=== PATIENT | female | born 1955 | race Two or more races ===

== ENCOUNTER 2021-10-07 04:52 | Inpatient (IN) | payer OTHER ==
[~2021-10-07] VITALS: Ht 162.6 cm; Wt 85.5 kg
[2021-10-07 05:29] LABS: Basophils # (auto) 0.1 10 ^3/uL (0-0.2); Basophils % (auto) 0.9 % (0.0-2.0); Eosinophils # (auto) 0 10 ^3/uL (0-0.8); Lymphocytes # (auto) 1.5 10 ^3/uL (0.4-5.4); Monocytes # (auto) 0.6 10 ^3/uL (0-1.3); Monocytes % (auto) 5.6 % (0.0-12.0); White Blood Cell 11.4 10^3/uL (4.4-10.8)
[2021-10-07 05:32] LABS: Eosinophils % (auto) 0.2 % (0.0-7.0); Hematocrit 33.9 % (36.0-46.0); Hemoglobin 11.1 g/dL (12.2-16.2); Lymphocytes % (auto) 13.2 % (10.0-50.0); Mean Corpuscular Hemoglobin 24.4 pg (28.0-32.0); Mean Corpuscular Hgb Conc. 32.8 g/dL (32.0-36.0); Mean Corpuscular Volume 74.5 fL (80.0-100.0); Neutrophils # (auto) 9.2 10 ^3/uL (1.6-8.6); Neutrophils % (auto) 80.1 % (37.0-80.0); Red Blood Cells 4.55 10^6/uL (4.0-5.20); Red Cell Distribution Width 15.5 % (11.8-14.3)
[2021-10-07] MEDS ORDERED: DONNATAL 5ml ORAL Elix (BELLADONNA ALK-PHENOBARB) PO ONE (07:30)
[2021-10-07] MEDS ORDERED: KETOROLAC TROMETH 30 MG/ML 1ML VIAL IV ONE (07:30)
[2021-10-07] MEDS ORDERED: FAMOTIDINE (10MG/ML) 2ML VL IV ONE ×2 (07:30→14:12)
[2021-10-07] MEDS ORDERED: ONDANSETRON HCL 4 MG/2 ML VIAL IV ONE (07:30)
[2021-10-07] MEDS ORDERED: LIDOCAINE VISCOUS 2% 15ML UD PO ONE (07:30)
[2021-10-07] MEDS ORDERED: ALUM & MAG HYDROX-SIMETH LIQ(MAALOX) 30 ML PO ONE (07:30)
[2021-10-07 08:40] LABS: Albumin 3.2 g/dL (3.4-5.0); Anion Gap 10 (5-15); Blood Urea Nitrogen 9 mg/dL (7-18); Calcium 9.8 mg/dL (8.5-10.1); Carbon Dioxide 22 mmol/L (21-32); Chloride 108 mmol/L (98-107); Glucose 125 mg/dL (74-106); Potassium 4.3 mmol/L (3.5-5.1); Sodium 140 mmol/L (136-145)
[2021-10-07 08:43] LABS: Alanine Aminotransferase 23 U/L (13-56); Alkaline Phosphatase 148 U/L (45-117); Aspartate Aminotransferase 22 U/L (15-37); BUN/Creatinine Ratio 9.1; Bilirubin, Total 0.3 mg/dL (0.2-1.0); GFR African American 72 mL/min; GFR Non-African American 59 mL/min; Total Protein 7.5 g/dL (6.4-8.2)
[2021-10-07] MEDS ORDERED: cefTRIAXone 1GM/50ML D5W 50 ML IV ONE (10:00)
[2021-10-07] MEDS ORDERED: metroNIDAZOLE 500MG/100ML 100 ML IV ONE (10:00)
[2021-10-07] MEDS ORDERED: MORPHINE SULFATE 4 MG/ML SYR/VIAL IV ONE (11:00)
[2021-10-07 11:35] LABS: INR 1.02 (0.9-1.15); Partial Thromboplastin Time 24.4 sec (23.6-33.0)
[2021-10-07] MEDS ORDERED: MORPHINE SULFATE INJECTION 2 MG/ML SYRG IV PRN (12:15)
[2021-10-07] MEDS ORDERED: ONDANSETRON HCL 4 MG/2 ML VIAL IV PRN ×2 (12:15→15:30)
[2021-10-07] MEDS ORDERED: SODIUM CHLORIDE 0.9% 1,000 ML IV ONE (12:15)
[2021-10-07 13:24] LABS: Urine Bacteria NONE SEEN /hpf (None Seen); Urine Blood Negative /uL (Negative); Urine Budding Yeast OCCASIONAL /hpf (None Seen); Urine Mucus FEW (None Seen); Urine WBC 3 /hpf (0 - 5)
[2021-10-07] MEDS ORDERED: ceFAZolin 1GM/50ML 100 ML IV ONE (13:42)
[2021-10-07] MEDS: metroNIDAZOLE 500MG/100ML 100 ML IV SCH ×2 (14:00→22:18)
[2021-10-07] MEDS ORDERED: BUPIVACAINE W/ EPINEPH 0.25% INJ 50ML MDV ONE (14:10)
[2021-10-07] MEDS ORDERED: KETOROLAC TROMETH 30 MG/ML 1ML VIAL ONE (14:12)
[2021-10-07] MEDS ORDERED: GLYCOPYRROLATE 0.2 MG/ML 1ML VIAL ONE (14:17)
[2021-10-07] MEDS ORDERED: MIDAZOLAM HCL 2MG/2ML 2ml VIAL (1mg/ml) ONE (14:17)
[2021-10-07] MEDS ORDERED: ROCURONIUM 10MG/ML 10ML VIAL IV ONE ×2 (14:17→14:22)
[2021-10-07] MEDS ORDERED: DexAMETHasone SOD PHOS 10MG/1ML VIAL INJ ONE (14:17)
[2021-10-07] MEDS ORDERED: PROPOFOL 10 MG/ML 20 ML IV ONE (14:17)
[2021-10-07] MEDS ORDERED: fentaNYL CITRATE 100 MCG/2 ML VL ONE (14:17)
[2021-10-07] MEDS ORDERED: ePHEDrine SULFATE 50 MG/ML AMP ONE (14:17)
[2021-10-07] MEDS ORDERED: HYDROmorphone HCL 2 MG/ML VL ONE (14:17)
[2021-10-07] MEDS ORDERED: LIDOCAINE 2% (LOCAL ANESTH.) PF 5ml SDV ONE (14:17)
[2021-10-07] MEDS ORDERED: ONDANSETRON HCL 4 MG/2 ML VIAL ONE (14:17)
[2021-10-07] MEDS ORDERED: SUGAMMADEX 200mg/2ml Vial (100MG/ML) IV ONE (15:01)
[2021-10-07] MEDS: D5W/SOD CHL 0.45%/KCL 20MEQ 1,000 ML IV SCH (15:15)
[2021-10-07] MEDS ORDERED: HYDROmorphone HCL 2 MG/ML VL IV ONE (15:15)
[2021-10-07] MEDS ORDERED: HYDROmorphone HCL 2 MG/ML VL IV PRN (15:30)
[2021-10-07 17:25] VITALS: BP 123/42
[2021-10-07] MEDS: ceFAZolin 1GM/50ML 50 ML IV SCH ×2 (21:30→22:05)
[2021-10-07 22:18] VITALS: BP 133/76
[2021-10-07 22:46] LABS: Cholesterol 195 mg/dL (< 200); HDL Cholesterol 61 mg/dL (40-59); LDL Cholesterol 122 mg/dL (< 100); Triglycerides 41 mg/dL (< 150)
[2021-10-08] MEDS: D5W/SOD CHL 0.45%/KCL 20MEQ 1,000 ML IV SCH ×2 (02:08→14:44)
[2021-10-08 04:20] VITALS: BP 127/69
[2021-10-08 05:07] LABS: Basophils # (auto) 0 10 ^3/uL (0-0.2); Basophils % (auto) 0.2 % (0.0-2.0); Eosinophils # (auto) 0 10 ^3/uL (0-0.8); Mean Corpuscular Hemoglobin 24.3 pg (28.0-32.0); Monocytes # (auto) 0.9 10 ^3/uL (0-1.3); Red Cell Distribution Width 15.6 % (11.8-14.3)
[2021-10-08 05:08] LABS: Hematocrit 27.6 % (36.0-46.0); Lymphocytes % (auto) 8.8 % (10.0-50.0); Mean Corpuscular Hgb Conc. 32.6 g/dL (32.0-36.0); Mean Corpuscular Volume 74.6 fL (80.0-100.0); Monocytes % (auto) 7.9 % (0.0-12.0); Neutrophils # (auto) 9.6 10 ^3/uL (1.6-8.6); Neutrophils % (auto) 83.1 % (37.0-80.0); White Blood Cell 11.6 10^3/uL (4.4-10.8)
[2021-10-08] MEDS: ceFAZolin 1GM/50ML 50 ML IV SCH ×3 (05:12→21:38)
[2021-10-08 05:29] LABS: Albumin 2.4 g/dL (3.4-5.0); BUN/Creatinine Ratio 11.2; Calcium 9.1 mg/dL (8.5-10.1); Potassium 4.2 mmol/L (3.5-5.1)
[2021-10-08 05:31] LABS: Bilirubin, Total 0.4 mg/dL (0.2-1.0); Total Protein 5.8 g/dL (6.4-8.2)
[2021-10-08] MEDS: metroNIDAZOLE 500MG/100ML 100 ML IV SCH ×3 (05:49→22:44)
[2021-10-08 09:30] VITALS: BP 129/75
[2021-10-08] MEDS: PANTOPRAZOLE 40 MG/10 ML VIAL INJ IV SCH (10:14)
[2021-10-08 13:00] VITALS: BP 120/74
[2021-10-08 17:00] VITALS: BP 145/78
[2021-10-08 22:00] VITALS: BP 137/71
[2021-10-09 05:00] VITALS: BP 146/82
[2021-10-09 05:25] LABS: Eosinophils # (auto) 0.1 10 ^3/uL (0-0.8); Lymphocytes # (auto) 1.7 10 ^3/uL (0.4-5.4); Mean Corpuscular Volume 74.3 fL (80.0-100.0); Monocytes # (auto) 0.7 10 ^3/uL (0-1.3); Nucleated Red Blood Cells % 0.1 %
[2021-10-09 05:28] LABS: Basophils # (auto) 0.1 10 ^3/uL (0-0.2); Basophils % (auto) 1.2 % (0.0-2.0); Eosinophils % (auto) 1.5 % (0.0-7.0); Hematocrit 25.3 % (36.0-46.0); Hemoglobin 8.4 g/dL (12.2-16.2); Mean Corpuscular Hemoglobin 24.7 pg (28.0-32.0); Mean Corpuscular Hgb Conc. 33.3 g/dL (32.0-36.0); Monocytes % (auto) 11.4 % (0.0-12.0); Neutrophils # (auto) 3.5 10 ^3/uL (1.6-8.6); Neutrophils % (auto) 57.9 % (37.0-80.0); Red Blood Cells 3.41 10^6/uL (4.0-5.20); White Blood Cell 6.1 10^3/uL (4.4-10.8)
[2021-10-09] MEDS: ceFAZolin 1GM/50ML 50 ML IV SCH (06:14)
[2021-10-09] MEDS: metroNIDAZOLE 500MG/100ML 100 ML IV SCH (06:51)
[2021-10-09 09:00] VITALS: BP 144/78
[2021-10-09] MEDS: PANTOPRAZOLE 40 MG/10 ML VIAL INJ IV SCH (09:33)
[2021-10-09] MEDS ORDERED: CEPH-509 PO (11:18)
[2021-10-09] MEDS ORDERED: ACET-1079 PO (11:19)
== END 2021-10-09 12:00 | disposition home or self-care (01) | DRG 419 ==
LOC: ER 04:52 → OVERFLOW 12:08 → CENTRAL 16:14
PROVIDERS: ADMIT Registered Nurse; ATTEND Registered Nurse
PROC: 0FT44ZZ Resection of Gallbladder, Percutaneous Endoscopic Approach (ICD-10-PCS; principal; 2021-10-07 14:28)
DX: K80.00 Calculus of gallbladder with acute cholecystitis without obstruction (principal); D50.9 Iron deficiency anemia, unspecified; E66.01 Morbid (severe) obesity due to excess calories; K44.9 Diaphragmatic hernia without obstruction or gangrene; Z20.822 Contact with and (suspected) exposure to COVID-19; Z87.19 Personal history of other diseases of the digestive system; Z68.32 Body mass index [BMI] 32.0-32.9, adult
CPT/HCPCS: 36415; 71045; 76705; 80053; 80061; 81001; 83036; 83690; 83735; 83880; 84484; 85025; 85610; 85730; 86850; 86900; 86901; 93005; 96365; 96375; C9113; G0378; J0690; J0696; J1100; J1885; J2001; J2250; J2405; J2704; J3490

== ENCOUNTER 2023-03-22 17:18 | Inpatient (IN) | payer OTHER ==
[~2023-03-22] VITALS: Ht 160 cm; Wt 80.4 kg
[~2023-03-22 17:18] MED LIST: ACET-1079 PO; CEPH-509 PO
[2023-03-22 17:47] LABS: Basophils # (auto) 0 10 ^3/uL (0-0.2); Basophils % (auto) 0.6 % (0.0-2.0); Eosinophils # (auto) 0.1 10 ^3/uL (0-0.8); Eosinophils % (auto) 0.7 % (0.0-7.0); Hematocrit 42.6 % (36.0-46.0); Hemoglobin 14.1 g/dL (12.2-16.2); Lymphocytes # (auto) 1.4 10 ^3/uL (0.4-5.4); Mean Corpuscular Hgb Conc. 33.1 g/dL (32.0-36.0); Mean Corpuscular Volume 87.6 fL (80.0-100.0); Monocytes # (auto) 0.5 10 ^3/uL (0-1.3); Monocytes % (auto) 6.4 % (0.0-12.0); Neutrophils # (auto) 5.9 10 ^3/uL (1.6-8.6); Neutrophils % (auto) 74.3 % (37.0-80.0); Nucleated Red Blood Cells % 0.1 %; Red Blood Cells 4.86 10^6/uL (4.0-5.20); Red Cell Distribution Width 14.2 % (11.8-14.3); White Blood Cell 7.9 10^3/uL (4.4-10.8)
[2023-03-22 18:13] LABS: Alanine Aminotransferase 78 U/L (7-40); Alkaline Phosphatase 155 U/L (46-116); Calcium 10.3 mg/dL (8.7-10.4); Chloride 110 mmol/L (98-107)
[2023-03-22 18:14] LABS: Albumin 4.3 g/dL (3.2-4.8); Anion Gap 5 (5-15); Aspartate Aminotransferase 62 U/L (13-40); BUN/Creatinine Ratio 15.2 (10.0-20.0); Bilirubin, Total 0.5 mg/dL (0.2-1.0); Blood Urea Nitrogen 14 mg/dL (9-23); Carbon Dioxide 27 mmol/L (20-30); Glucose 108 mg/dL (74-106); Potassium 4.1 mmol/L (3.5-5.1); Sodium 142 mmol/L (136-145); Total Protein 6.5 g/dL (5.7-8.2)
[2023-03-22] MEDS ORDERED: ASPirin 325 MG TAB PO ONE (18:30)
[2023-03-22] MEDS ORDERED: SODIUM CHLORIDE 0.9% 500 ML IV ONE (18:30)
[2023-03-22] MEDS ORDERED: NITROGLYCERIN 0.4 MG SL TAB SL ONE (18:30)
[2023-03-22] MEDS ORDERED: SODIUM CHLORIDE 0.9% 1,000 ML IV SCH (19:30)
[2023-03-22] MEDS ORDERED: MORPHINE SULFATE INJ 2 MG/ml SYRG IV PRN (19:30)
[2023-03-22] MEDS ORDERED: NITROGLYCERIN 0.4 MG SL TAB SL PRN (19:30)
[2023-03-22 19:51] LABS: Triglycerides 102 mg/dL (< 150)
[2023-03-22 19:52] LABS: LDL Cholesterol 156 mg/dL (< 100)
[2023-03-22 19:53] LABS: Cholesterol 225 mg/dL (< 200); HDL Cholesterol 50 mg/dL (40-59)
[2023-03-22 20:02] LABS: INR 1.01 (0.9-1.15); Prothrombin Time 10.6 sec (9.3-11.8)
[2023-03-22 22:46] VITALS: BP 150/85; PULSE 84; RESP 17; TEMP 97.8; O2SAT 98
[2023-03-22] MEDS ORDERED: ASCO500T11 GT (22:47)
[2023-03-22] MEDS ORDERED: FER325T PO (22:47)
[2023-03-22] MEDS ORDERED: MULT-195 OR (22:48)
[2023-03-22 22:50] VITALS: PULSE 84
[2023-03-23] VITALS (7 sets, daily range): BP systolic 132–164; BP diastolic 75–89; PULSE 55–95; RESP 16–20; TEMP 97.8–98.1; O2SAT 92–100
[2023-03-23 06:38] LABS: Alanine Aminotransferase 106 U/L (7-40); Albumin 3.7 g/dL (3.2-4.8); Alkaline Phosphatase 128 U/L (46-116); Anion Gap 3 (5-15); Aspartate Aminotransferase 96 U/L (13-40); BUN/Creatinine Ratio 11.3 (10.0-20.0); Bilirubin, Total 0.8 mg/dL (0.2-1.0); Blood Urea Nitrogen 9 mg/dL (9-23); Calcium 9.3 mg/dL (8.7-10.4); Carbon Dioxide 26 mmol/L (20-30); Chloride 112 mmol/L (98-107); Glucose 94 mg/dL (74-106); Potassium 3.9 mmol/L (3.5-5.1); Sodium 141 mmol/L (136-145); Total Protein 5.6 g/dL (5.7-8.2)
[2023-03-23 06:49] LABS: Basophils # (auto) 0 10 ^3/uL (0-0.2); Basophils % (auto) 0.8 % (0.0-2.0); Eosinophils # (auto) 0.1 10 ^3/uL (0-0.8); Hematocrit 37.5 % (36.0-46.0); Hemoglobin 12.6 g/dL (12.2-16.2); Lymphocytes # (auto) 1.6 10 ^3/uL (0.4-5.4); Lymphocytes % (auto) 30.6 % (10.0-50.0); Mean Corpuscular Hemoglobin 29.2 pg (28.0-32.0); Mean Corpuscular Hgb Conc. 33.7 g/dL (32.0-36.0); Mean Corpuscular Volume 86.9 fL (80.0-100.0); Monocytes # (auto) 0.6 10 ^3/uL (0-1.3); Neutrophils % (auto) 55.6 % (37.0-80.0); Nucleated Red Blood Cells % 0.1 %; Red Blood Cells 4.31 10^6/uL (4.0-5.20); Red Cell Distribution Width 14.3 % (11.8-14.3); White Blood Cell 5.4 10^3/uL (4.4-10.8)
[2023-03-23] MEDS: ASPirin 81 mg TAB PO SCH (08:39)
[2023-03-23] MEDS ORDERED: ENOXAPARIN SOD 40 MG/0.4 ML SYRINGE SC SCH (10:00)
[2023-03-23] MEDS: hydrALAZINE HCL 20 MG/ML VL IV PRN (11:03)
[2023-03-23] MEDS ORDERED: LISINOPRIL 20 MG TAB PO ONE (14:45)
[2023-03-23] MEDS ORDERED: LISINOPRIL 10 MG TAB PO ONE (17:00)
[2023-03-23] MEDS: ACETAMINOPHEN 325 MG TAB PO PRN (18:11)
[2023-03-23] MEDS ORDERED: ATORVASTATIN 20 MG TAB PO SCH (22:00)
[2023-03-24 07:18] LABS: Alanine Aminotransferase 116 U/L (7-40); Alkaline Phosphatase 153 U/L (46-116); Anion Gap 5 (5-15); BUN/Creatinine Ratio 8.3 (10.0-20.0); Blood Urea Nitrogen 7 mg/dL (9-23); Calcium 9.8 mg/dL (8.7-10.4); Carbon Dioxide 26 mmol/L (20-30); Chloride 111 mmol/L (98-107); Glucose 94 mg/dL (74-106); Magnesium 1.9 mg/dL (1.6-2.6); Potassium 3.8 mmol/L (3.5-5.1); Sodium 142 mmol/L (136-145)
[2023-03-24 07:19] LABS: Albumin 3.7 g/dL (3.2-4.8); Aspartate Aminotransferase 65 U/L (13-40)
[2023-03-24 07:20] LABS: Bilirubin, Total 1.1 mg/dL (0.2-1.0); Total Protein 6.3 g/dL (5.7-8.2)
[2023-03-24 08:00] VITALS: BP 130/80; PULSE 89; PULSE 90; PULSE 94; RESP 18; TEMP 98.1; O2SAT 94
[2023-03-24 09:00] VITALS: BP 130/80; PULSE 90; RESP 18; TEMP 98.1; O2SAT 94
[2023-03-24] MEDS: ASPirin 81 mg TAB PO SCH (09:29)
[2023-03-24] MEDS: LISINOPRIL 20 MG TAB PO SCH (09:30)
[2023-03-24] MEDS ORDERED: PANTOPRAZOLE 40 MG TAB PO SCH (10:00)
[2023-03-24] MEDS ORDERED: LISINOPRIL 20 MG TAB PO SCH (10:00)
[2023-03-24] MEDS ORDERED: IOHEXOL 350 MG/ML 100ML IJ ONE (11:32)
[2023-03-24] MEDS: hydrALAZINE HCL 20 MG/ML VL IV PRN (12:28)
[2023-03-24 13:00] VITALS: BP 180/78; PULSE 88; RESP 15; TEMP 97.7; O2SAT 96
[2023-03-24] MEDS: ACETAMINOPHEN 325 MG TAB PO PRN (13:20)
[2023-03-24 17:00] VITALS: BP 136/90; PULSE 94; RESP 18; TEMP 97.8; O2SAT 100
[2023-03-24 20:00] VITALS: BP 145/83; PULSE 91; PULSE 94; RESP 18; TEMP 98.1; O2SAT 94
[2023-03-24 22:00] VITALS: BP_SYST 129; BP_SYST 145; BP_DIAS 72; BP_DIAS 83; PULSE 91; PULSE 92; PULSE 94; RESP 18; RESP 20; TEMP 98.1; O2SAT 94; O2SAT 96
[2023-03-25] VITALS (7 sets, daily range): BP systolic 118–140; BP diastolic 62–85; PULSE 62–112; RESP 18–22; TEMP 97.8–98.4; O2SAT 94–95
[2023-03-25 06:17] LABS: Basophils # (auto) 0 10 ^3/uL (0-0.2); Basophils % (auto) 0.7 % (0.0-2.0); Eosinophils # (auto) 0.1 10 ^3/uL (0-0.8); Eosinophils % (auto) 1.2 % (0.0-7.0); Hematocrit 41.1 % (36.0-46.0); Hemoglobin 13.6 g/dL (12.2-16.2); Lymphocytes # (auto) 1.8 10 ^3/uL (0.4-5.4); Lymphocytes % (auto) 29.3 % (10.0-50.0); Mean Corpuscular Hemoglobin 29.2 pg (28.0-32.0); Mean Corpuscular Hgb Conc. 33.1 g/dL (32.0-36.0); Mean Corpuscular Volume 88.3 fL (80.0-100.0); Monocytes # (auto) 0.6 10 ^3/uL (0-1.3); Monocytes % (auto) 10.6 % (0.0-12.0); Neutrophils # (auto) 3.5 10 ^3/uL (1.6-8.6); Neutrophils % (auto) 58.2 % (37.0-80.0); Nucleated Red Blood Cells % 0.1 %; Red Blood Cells 4.66 10^6/uL (4.0-5.20); Red Cell Distribution Width 14.3 % (11.8-14.3); White Blood Cell 6.1 10^3/uL (4.4-10.8)
[2023-03-25 06:43] LABS: Anion Gap 5 (5-15); Calcium 9.9 mg/dL (8.7-10.4); Carbon Dioxide 25 mmol/L (20-30); Chloride 111 mmol/L (98-107); Potassium 3.9 mmol/L (3.5-5.1); Sodium 141 mmol/L (136-145)
[2023-03-25 06:49] LABS: BUN/Creatinine Ratio 6.8 (10.0-20.0); Blood Urea Nitrogen 6 mg/dL (9-23); Glucose 91 mg/dL (74-106)
[2023-03-25 09:27] LABS: Ferritin 77.3 ng/mL (10-291)
[2023-03-25 09:48] LABS: Carcinoembryonic Antigen 1.82 ng/mL (<=5.0)
[2023-03-25] MEDS: ASPirin 81 mg TAB PO SCH (10:29)
[2023-03-25] MEDS: LISINOPRIL 20 MG TAB PO SCH (10:30)
[2023-03-25] MEDS: PANTOPRAZOLE 40 MG/10 ML VIAL INJ IV SCH ×2 (10:30→21:14)
[2023-03-25] MEDS: SUCRALFATE 1 GM TAB PO SCH ×2 (17:39→21:14)
[2023-03-26] VITALS (8 sets, daily range): BP systolic 125–149; BP diastolic 72–92; PULSE 74–87; RESP 12–20; TEMP 97.6–98.3; O2SAT 93–97
[2023-03-26 05:22] LABS: Alanine Aminotransferase 72 U/L (7-40); Albumin 3.5 g/dL (3.2-4.8); Alkaline Phosphatase 137 U/L (46-116); Anion Gap 6 (5-15); Aspartate Aminotransferase 28 U/L (13-40); BUN/Creatinine Ratio 12.2 (10.0-20.0); Blood Urea Nitrogen 11 mg/dL (9-23); Calcium 9.8 mg/dL (8.7-10.4); Carbon Dioxide 24 mmol/L (20-30); Chloride 110 mmol/L (98-107); Glucose 98 mg/dL (74-106); Potassium 3.9 mmol/L (3.5-5.1); Sodium 140 mmol/L (136-145)
[2023-03-26 05:23] LABS: Bilirubin, Total 0.6 mg/dL (0.2-1.0); Total Protein 6.1 g/dL (5.7-8.2)
[2023-03-26] MEDS: SUCRALFATE 1 GM TAB PO SCH ×4 (05:42→21:06)
[2023-03-26 08:46] LABS: Hepatitis B Surface Antigen Negative (Negative)
[2023-03-26 09:42] LABS: Hepatitis A Ab IgM Negative
[2023-03-26] MEDS ORDERED: LIDOCAINE VISCOUS 2% 15ML UD ONE ×2 (09:48→13:14)
[2023-03-26] MEDS ORDERED: IOHEXOL 300 MG/ML 100ML BOTTLE IJ ONE (10:40)
[2023-03-26 13:00] LABS: Hepatitis B Core IgM Negative
[2023-03-26 13:01] LABS: Hepatitis C Antibody Negative (Negative)
[2023-03-26] MEDS ORDERED: fentaNYL CITRATE 100 MCG/2 ML VL ONE (13:14)
[2023-03-26] MEDS ORDERED: MIDAZOLAM HCL 5 MG/ML-1ML VIAL ONE (13:14)
[2023-03-26] MEDS ORDERED: diphenhdrAMINE HCL 50 MG/1 ML VL ONE (13:14)
[2023-03-26] MEDS: PANTOPRAZOLE 40 MG/10 ML VIAL INJ IV SCH ×2 (14:12→21:06)
[2023-03-26] MEDS: LISINOPRIL 20 MG TAB PO SCH (14:21)
[2023-03-27 05:00] VITALS: BP 133/77; PULSE 82; RESP 22; TEMP 97.8; O2SAT 93
[2023-03-27 06:11] LABS: Basophils # (auto) 0 10 ^3/uL (0-0.2); Basophils % (auto) 0.8 % (0.0-2.0); Eosinophils # (auto) 0.1 10 ^3/uL (0-0.8); Eosinophils % (auto) 2.6 % (0.0-7.0); Hematocrit 39.3 % (36.0-46.0); Lymphocytes # (auto) 1.6 10 ^3/uL (0.4-5.4); Lymphocytes % (auto) 30.7 % (10.0-50.0); Mean Corpuscular Hemoglobin 29.6 pg (28.0-32.0); Mean Corpuscular Hgb Conc. 33.1 g/dL (32.0-36.0); Mean Corpuscular Volume 89.4 fL (80.0-100.0); Monocytes # (auto) 0.5 10 ^3/uL (0-1.3); Monocytes % (auto) 10.3 % (0.0-12.0); Neutrophils # (auto) 2.9 10 ^3/uL (1.6-8.6); Neutrophils % (auto) 55.6 % (37.0-80.0); Nucleated Red Blood Cells % 0.3 %; Red Blood Cells 4.39 10^6/uL (4.0-5.20); Red Cell Distribution Width 14.3 % (11.8-14.3); White Blood Cell 5.2 10^3/uL (4.4-10.8)
[2023-03-27] MEDS: SUCRALFATE 1 GM TAB PO SCH ×2 (06:22→11:45)
[2023-03-27 08:00] VITALS: PULSE 86; RESP 18; O2SAT 94
[2023-03-27 08:06] LABS: AFP Serum Tumor Marker 2.1 ng/mL (0.0-9.2)
[2023-03-27 09:37] VITALS: BP 139/76; PULSE 83; RESP 16; TEMP 98.2; O2SAT 97
[2023-03-27] MEDS: LISINOPRIL 20 MG TAB PO SCH (09:51)
[2023-03-27] MEDS ORDERED: PANT40TA2 PO (10:30)
[2023-03-27] MEDS ORDERED: SUCR1TAB22 OR (10:30)
[2023-03-27] MEDS: PANTOPRAZOLE 40 MG/10 ML VIAL INJ IV SCH (10:42)
[2023-03-27] MEDS ORDERED: LISI20TA56 PO (11:06)
[2023-03-27 12:06] LABS: Anti-Nuclear Antibody Direct Negative (Negative)
[2023-03-27 12:56] VITALS: BP 133/77; PULSE 86; RESP 18; TEMP 98.9; O2SAT 96
[2023-03-27] MEDS ORDERED: FUROSEMIDE 40 MG/4 ML VIAL IV ONE (13:30)
[2023-03-27 16:23] VITALS: BP 133/77; PULSE 86; RESP 18; TEMP 98.9; O2SAT 96
[2023-03-27 16:42] VITALS: BP 139/78; PULSE 89; RESP 16; TEMP 98; O2SAT 97
[2023-03-28] MEDS ORDERED: PANTOPRAZOLE 40 MG/10 ML VIAL INJ IV SCH (10:00)
== END 2023-03-27 17:15 | disposition home or self-care (01) | DRG 305 ==
LOC: ER 17:18 → TELE 19:21 → TELE-CENTR 21:42 → CENTRAL 22:48
PROVIDERS: ADMIT Internal Medicine Geriatric Medicine; ATTEND Student in an Organized Health Care Education/Training Program
PROC: 0DD68ZX Extraction of Stomach, Via Natural or Artificial Opening Endoscopic, Diagnostic (ICD-10-PCS; 2023-03-26)
PROC: 0DB98ZX Excision of Duodenum, Via Natural or Artificial Opening Endoscopic, Diagnostic (ICD-10-PCS; principal; 2023-03-26 11:58)
DX: I16.0 Hypertensive urgency (principal); N13.30 Unspecified hydronephrosis; K44.9 Diaphragmatic hernia without obstruction or gangrene; E78.5 Hyperlipidemia, unspecified; K21.9 Gastro-esophageal reflux disease without esophagitis; N26.1 Atrophy of kidney (terminal); K75.81 Nonalcoholic steatohepatitis (NASH); I25.10 Atherosclerotic heart disease of native coronary artery without angina pectoris; K57.30 Diverticulosis of large intestine without perforation or abscess without bleeding; K29.90 Gastroduodenitis, unspecified, without bleeding; E66.9 Obesity, unspecified; Z90.49 Acquired absence of other specified parts of digestive tract; Z79.82 Long term (current) use of aspirin; Z90.710 Acquired absence of both cervix and uterus; Z80.8 Family history of malignant neoplasm of other organs or systems; Z82.3 Family history of stroke; Z68.30 Body mass index [BMI] 30.0-30.9, adult
CPT/HCPCS: 36415; 43239; 71045; 71275; 74178; 74181; 76705; 76775; 78226; 78707; 80048; 80053; 80061; 80074; 82105; 82378; 82728; 83036; 83735; 84443; 84484; 85025; 85379; 85610; 86038; 86301; 93005; 93306; 96360; 96361; C9113; G0378; J2250